=== PATIENT | female | born 1970 | race Caucasian/White ===

== ENCOUNTER 2017-10-31 08:36 | Emergency (ER) | payer OTHER ==
[2017-10-31] MEDS ORDERED: ONDANSETRON 4 MG/2 ML VIAL IVP STA ×2 (09:59→12:45)
[2017-10-31] MEDS ORDERED: KETOROLAC 60 MG/2 ML VIAL IVP STA (09:59)
[2017-10-31] MEDS ORDERED: SODIUM CHLORIDE 0.9% 1,000 ML IV ONE ×2 (09:59→12:14)
--- NOTE | 2017-10-31 10:02 | ED Physician Documentation ---
PD HPI ABD PAIN - Stated complaint Stated Complaint: ABD PX - Chief complaint Chief Complaint: Abd Pain - History obtained from History obtained from: Patient, Family (son) - History of Present Illness Timing - onset: How many weeks ago (2) Timing - duration: Weeks (2) Timing - details: Abrupt onset, Still present, Waxing and waning Quality: Sharp, Pain Location: RUQ Radiation: Right flank Improved by: Other (nothing) Worsened by: Other (nothing) Associated symptoms: Nausea, Vomiting Similar symptoms before: Diagnosis (chronic abdominal pain) Recently seen: Not recently seen - Additional information Additional information: 47-year-old female on pain management for chronic abdominal pain has developed acute right upper quadrant abdominal pain that radiates down into the right lower quadrant. She states that she has had some times where the pain is been resolved and she has severe pain and today the pain is bad enough that she has had some nausea and vomiting. She brings in a white gel like substance that she has vomited appears to be a pill ghost is stamped with a #10 and she states that she did take her oxycodone 10 this morning. Review of Systems Constitutional: denies: Fever Eyes: denies: Decreased vision Ears: denies: Ear pain Nose: denies: Congestion Throat: denies: Sore throat Cardiac: denies: Chest pain / pressure, Palpitations Respiratory: denies: Dyspnea, Cough GI: reports: Abdominal Pain, Nausea, Vomiting : denies: Dysuria, Frequency Skin: denies: Rash Musculoskeletal: reports: Back pain. 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 - Present Medications Home Medications: Ambulatory Orders Medication Instructions Recorded Confirmed oxyCODONE [Roxicodone] 0 mg PO PRN 07/30/13 12/31/13 Estrogens, Conjugated [Premarin] 0 mg PO 10/31/17 Famotidine [Pepcid] 10/31/17 Omeprazole [PriLOSEC] 10/31/17 oxyCODONE ER [OxyCONTIN] 10 mg BID 10/31/17 10/31/17 - Allergies Allergies/Adverse Reactions: Allergies Allergy/AdvReac Type Severity Reaction Status Date / Time acetaminophen [From Vicodin] Allergy Rash Verified 10/31/17 08:53 hydrocodone bitartrate * Allergy Rash Verified 10/31/17 08:53 [From Vicodin] - Social History Does the pt smoke?: No Smoking Status: Never smoker Does the pt drink ETOH?: No Does the pt have substance abuse?: No Substance Use and Type: Other PD ED PE NORMAL - Vitals Vital signs reviewed: Yes (hypertensive) - General General: Alert and oriented X 3, Well developed/nourished, Other (The patient is moaning in pain with 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 ) - Back Back: No CVA TTP, No spinal TTP - Derm Derm: Normal color, Warm and dry, No rash - Extremities Extremities: No deformity, No edema - Neuro Neuro: No motor deficit, No sensory deficit Eye Opening: Spontaneous Motor: Obeys Commands Verbal: Oriented GCS Score: 15 Results - Vitals Vitals: Vital Signs - 24 hr 10/31/17 10/31/17 10/31/17 08:40 11:00 12:05 Temperature 36.5 C Heart Rate 89 82 90 Respiratory 16 16 Rate Blood Pressure 142/90 H 140/86 H 143/93 H O2 Saturation 98 95 97 10/31/17 10/31/17 14:04 14:36 Temperature Heart Rate 94 98 Respiratory 12 16 Rate Blood Pressure 128/80 131/89 H O2 Saturation 98 97 Oxygen O2 Source Room air - Labs Labs: Laboratory Tests 10/31/17 10/31/17 10/31/17 09:58 10:14 13:40 WBC 18.3 H RBC 4.33 Hgb 12.8 Hct 38.0 MCV 87.7 MCH 29.5 MCHC 33.7 RDW 13.7 Plt Count 287 MPV 8.2 Neut # 17.0 H Lymph # 0.8 L [place] # 0.5 Eos # 0.0 Baso # 0.0 Absolute Nucleated RBC 0.01 Nucleated RBC % 0.0 Sodium 134 L Potassium 3.1 L Chloride 100 L Carbon Dioxide 25 Anion Gap 9.0 BUN 10 Creatinine 0.8 Estimated GFR (MDRD) 76 L Glucose 160 H Calcium 8.9 Total Bilirubin 0.6 AST 21 ALT 16 Alkaline Phosphatase 49 Total Protein 7.3 Albumin 4.1 Globulin 3.2 Albumin/Globulin Ratio 1.3 Lipase 10 L Urine Color YELLOW Urine Clarity CLEAR Urine pH 8.0 H Ur Specific [place] 1.015 Urine Protein NEGATIVE Urine Glucose (UA) NEGATIVE Urine Ketones 15 H Urine Occult Blood NEGATIVE Urine Nitrite NEGATIVE Urine Bilirubin NEGATIVE Urine Urobilinogen 0.2 (NORMAL) Ur Leukocyte Esterase NEGATIVE Ur Microscopic Review NOT INDICATED Urine Culture Comments NOT INDICATED - Rads (name of study) CT abdomen/pelvis Radiology: Prelim report reviewed (Impression: 1. No hydro-nephrosis or ureteral lithiasis. 2. No acute inflammatory or obstructive process identified. 3. Trace dependent pelvic free fluid, nonspecific. 4. Hepatomegaly, similar. 5.Sigmoid diverticulosis.), EMP read indepedently, See rad report Procedures - Bedside sono Bedside sono by EMP: With use of bedside ultrasound the right kidney is imaged there is evidence of hydronephrosis and the kidney is sonographically nontender. PD MEDICAL DECISION MAKING - ED course Complexity details: reviewed results, re-evaluated patient, considered differential, d/w patient, d/w family ED course: 47-year-old female with chronic abdominal pain on pain management has developed acute right flank pain has hydro-on bedside examination and this is suspicious for ureterolithiasis. There is no evidence of ureteral lithiasis nor hydronephrosis on CT examination of the abdomen and pelvis. The patient is given IV saline and pain medication. Toradal did not help. Dilaudid did help and she required 2 doses for excellent pain relief. Departure - Departure Disposition: 01 Home, Self Care Clinical Impression: Abdominal pain Qualifiers: Abdominal location: generalized Qualified Code(s): R10.84 - Generalized abdominal pain Instructions: ED Abdominal Pain Unkn Cause Follow-Up: Criselda Carrasquillo MD [Primary Care Provider] - Discharge Date/Time: 10/31/17 14:45
[2017-10-31 10:54] LABS: BASOPHILS % (AUTO) 0.2 %; HGB - HEMOGLOBIN 12.8 g/dL (12.0-16.0); LYMPHOCYTES # (AUTO) 0.8 10^3/uL (1.5-3.5); LYMPHOCYTES % (AUTO) 4.2 %; MEAN CORPUSCULAR HEMOGLOBIN 29.5 pg (27.0-31.0); MEAN CORPUSCULAR HGB CONC 33.7 g/dL (32.0-36.0); MEAN CORPUSCULAR VOLUME 87.7 fL (81.0-99.0); MEAN PLATELET VOLUME 8.2 fL (7.9-10.8); MONOCYTES # (AUTO) 0.5 10^3/uL (0.0-1.0); MONOCYTES % (AUTO) 2.8 %; NEUTROPHILS % (AUTO) 92.8 %; PLT - PLATELET COUNT 287 10^3/uL (130-450); RED BLOOD COUNT 4.33 10^6/uL (4.20-5.40); RED CELL DISTRIBUTION WIDTH 13.7 % (12.0-15.0); WHITE BLOOD COUNT 18.3 x10^3/uL (4.8-10.8)
[2017-10-31] MEDS ORDERED: HYDROmorphone 1 MG/ML CARPUJECT IVP STA ×2 (11:03→12:45)
[2017-10-31 11:07] LABS: ALBUMIN 4.1 g/dL (3.2-5.5); ALBUMIN/GLOBULIN RATIO 1.3 (1.0-2.2); BILIRUBIN,TOTAL 0.6 mg/dL (0.2-1.0); CALCIUM 8.9 mg/dL (8.5-10.3); CREATININE 0.8 mg/dL (0.4-1.0); TOTAL PROTEIN 7.3 g/dL (6.7-8.2)
--- NOTE | 2017-10-31 11:58 | CT Report ---
EXAM: CT ABDOMEN AND PELVIS EXAM DATE: 10/31/2017 11:31 AM. CLINICAL HISTORY: R flank pain with reported hydronephrosis on bedside eval. COMPARISONS: CT abdomen pelvis 03/25/2015. TECHNIQUE: Routine axial helical CT imaging was performed through the abdomen and pelvis without IV c ontrast. Reconstructions: Coronal and sagittal. In accordance with CT protocol optimization, one or more of the following dose reduction techniques w ere utilized for this exam: automated exposure control, adjustment of mA and/or KV based on patient s ize, or use of iterative reconstructive technique. FINDINGS: Lung Bases: Clear. Right Kidney/Ureter: No hydronephrosis, hydroureter, or stones. Normal renal size and contour. No foc al lesion identified. No perinephric fluid. Left Kidney/Ureter: No hydronephrosis, hydroureter, or stones. Normal renal size and contour. No foca l lesion identified. No perinephric fluid. Other Abdominal Organs: Elongated right hepatic lobe 23 cm in height, grossly comparable to prior. No focal lesion identified. No splenomegaly. Grossly unremarkable pancreas and adrenal glands. No ducta l dilatation status post remote cholecystectomy. Peritoneal Cavity: No bowel obstruction or focal inflammation identified. Sigmoid diverticulosis. Nor mal appendix. Minor nonspecific dependent right pelvic free fluid. No free air or mesenteric adenopat hy by CT size criteria. Retroperitoneum: No mass or lymphadenopathy. Pelvic Organs: No focal bladder abnormality identified. Hysterectomy. A small cystic focus 1.2 x 2.3 cm in the right adnexa. No adenopathy by size criteria. Vasculature: Normal caliber abdominal aorta. Other: Mild scoliosis and degenerative changes of the spine. IMPRESSION: 1. No hydronephrosis or urolithiasis. 2. No acute inflammatory or obstructive process identified. 3. Trace dependent pelvic free fluid, nonspecific. 4. Hepatomegaly, similar. 5. Sigmoid diverticulosis. [facility] Referring Provider Line: [phone] SITE ID: [id number]
--- NOTE | 2017-10-31 11:58 | CT Preliminary Report ---
Exam: CT ABDOMEN/PELVIS W/O IMPRESSION: 1. No hydronephrosis or urolithiasis. 2. No acute inflammatory or obstructive process identified. 3. Trace dependent pelvic free fluid, nonspecific. 4. Hepatomegaly, similar. 5. Sigmoid diverticulosis. [facility] SITE ID: [id number]
[2017-10-31] MEDS ORDERED: POTASSIUM CHLORIDE 20 MEQ TABLET PO STA (12:13)
[2017-10-31 13:53] LABS: BILIRUBIN,URINE NEGATIVE (NEGATIVE); CLARITY,URINE CLEAR (CLEAR); GLUCOSE, URINE (UA) NEGATIVE (NEGATIVE); KETONES,URINE (UA) 15 mg/dL (NEGATIVE); LEUKOCYTE ESTERASE, URINE NEGATIVE (NEGATIVE); NITRITE,URINE NEGATIVE (NEGATIVE); OCCULT BLOOD,URINE NEGATIVE (NEGATIVE); PROTEIN,URINE NEGATIVE (NEGATIVE); UROBILINOGEN,URINE 0.2 (NORMAL) E.U./dL (NORMAL)
[2017-10-31 14:36] VITALS: BP 131/89
== END 2017-10-31 14:45 | disposition home or self-care (01) ==
LOC: ED 08:36
DX: R10.11 Right upper quadrant pain (principal); R11.2 Nausea with vomiting, unspecified
CPT/HCPCS: 36415; 74176; 80053; 81003; 83690; 85025; 96361; 96374; 96375; 96376; 99283; 99284; A9270; J1170; 81001; 87086

== ENCOUNTER 2019-06-27 16:59 | Emergency (ER) | payer OTHER ==
--- NOTE | 2019-06-27 17:35 | ED Physician Documentation ---
PD HPI CHEST PAIN - Stated complaint Stated Complaint: LT CHEST,SHOULDER PX/SOA - Chief complaint Chief Complaint: Cardiac - History obtained from History obtained from: Patient - History of Present Illness Timing - onset: Today, Other (3 months) Timing - onset during: Rest Timing - details: Constant Pain level max: 9 Pain level now: 9 Quality: Aching, Pain Location: Left chest, Left shoulder/arm Improved by: Rest Worsened by: Movement, Palpation Associated symptoms: Shortness of air (wheezing). No: Diaphoresis, Nausea, Vomiting, Feeling faint / dizzy, General Weakness, Palpitations, Cough Recently seen: Not recently seen Review of Systems Ten Systems: 10 systems reviewed and negative Constitutional: denies: Fever, Chills Nose: denies: Rhinorrhea / runny nose, Congestion Throat: denies: Sore throat Cardiac: denies: Palpitations Respiratory: denies: Cough GI: denies: Nausea, Vomiting, Diarrhea Skin: denies: Rash Musculoskeletal: denies: Neck pain, Back pain Neurologic: denies: Headache PD PAST MEDICAL HISTORY - Past Medical History Past Medical History: No - Past Surgical History Past Surgical History: Yes 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 - Present Medications Home Medications: Ambulatory Orders Medication Instructions Recorded Confirmed oxyCODONE [Roxicodone] 0 mg PO PRN 07/30/13 12/31/13 Estrogens, Conjugated [Premarin] 0 mg PO 10/31/17 Famotidine [Pepcid] 10/31/17 Omeprazole [PriLOSEC] 10/31/17 oxyCODONE ER [OxyCONTIN] 10 mg BID 10/31/17 10/31/17 Cyclobenzaprine [Flexeril] 10 mg PO TID PRN #20 tablet 06/27/19 Meloxicam [Mobic] 15 mg PO DAILY PRN #20 tablet 06/27/19 - Allergies Allergies/Adverse Reactions: Allergies Allergy/AdvReac Type Severity Reaction Status Date / Time acetaminophen [From Vicodin] Allergy Rash Verified 10/31/17 08:53 hydrocodone bitartrate * Allergy Rash Verified 10/31/17 08:53 [From Vicodin] - Living Situation Living Situation: reports: With family Living Arrangement: reports: At home - Social History Does the pt smoke?: No Smoking Status: Never smoker Does the pt drink ETOH?: No Does the pt have substance abuse?: No PD ED PE NORMAL - Vitals Vital signs reviewed: Yes - General General: Alert and oriented X 3, No acute distress, Well developed/nourished - HEENT HEENT: Moist mucous membranes - Neck Neck: Supple, no meningeal sign - Cardiac Cardiac: RRR, Strong equal pulses - Respiratory Respiratory: No respiratory distress, Clear bilaterally - Abdomen Abdomen: Soft, Non tender, Non distended - Derm Derm: Warm and dry - Extremities Extremities: No edema, No calf tenderness / cord - Neuro Neuro: Alert and oriented X 3 - Psych Psych: Normal mood, Normal affect Results - Vitals Vitals: Vital Signs - 24 hr 06/27/19 06/27/19 06/27/19 17:06 17:30 18:00 Temperature 37.0 C Heart Rate 71 64 66 Respiratory 18 15 11 L Rate Blood Pressure 160/95 H 155/107 H 139/94 H O2 Saturation 97 97 96 06/27/19 06/27/19 06/27/19 18:51 19:00 19:33 Temperature Heart Rate 65 72 73 Respiratory 14 14 15 Rate Blood Pressure 149/93 H 137/97 H 146/93 H O2 Saturation 97 97 97 06/27/19 20:02 Temperature Heart Rate 71 Respiratory 17 Rate Blood Pressure 147/92 H O2 Saturation 97 Oxygen O2 Source Room air - EKG (time done) 1711 Rate: Rate (enter#) (59) Rhythm: NSR [place]: Normal Intervals: Other (short CT) QRS: Normal Ischemia: Normal ST segments - Labs Labs: Laboratory Tests 06/27/19 06/27/19 06/27/19 17:29 17:29 17:29 WBC 8.5 RBC 4.23 Hgb 12.0 Hct 38.1 MCV 90.1 MCH 28.4 MCHC 31.5 L RDW 14.3 Plt Count 429 MPV 8.9 Neut # (Auto) 4.6 Lymph # (Auto) 2.3 [place] # (Auto) 0.8 Eos # (Auto) 0.6 Baso # (Auto) 0.1 Absolute Nucleated RBC 0.00 Nucleated RBC % 0.0 Sodium 137 Potassium 4.0 Chloride 102 Carbon Dioxide 27 Anion Gap 8.0 BUN 16 Creatinine 0.8 Estimated GFR (MDRD) 76 L Glucose 97 Calcium 9.0 Total Bilirubin 0.6 AST 19 ALT 15 Alkaline Phosphatase 57 Troponin I High Sens 3.4 Total Protein 7.5 Albumin 3.8 Globulin 3.7 Albumin/Globulin Ratio 1.0 Lipase 31 - Rads (name of study) cxr Radiology: Prelim report reviewed, EMP read contemporaneously, See rad report (no acute disease) CT PA Radiology: Prelim report reviewed, EMP read contemporaneously, See rad report (no acute disease) PD MEDICAL DECISION MAKING - ED course Complexity details: reviewed results, re-evaluated patient, considered differential (No ST elevation AR, no aortic dissection, no PE, no tension pneumothorax, no aortic aneurysm), d/w patient, d/w family ED course: Patient with atypical chest pain. Appears to be musculoskeletal in nature. Worse with movement and better with rest. Also worse with palpation. She is on chronic narcotics at home. Will trial on muscle relaxants as well. No evidence of pulmonary embolus, aortic dissection. Patient counseled regarding signs and symptoms for which I believe and urgent re-evaluation would be necessary. Patient with good understanding of and agreement to plan and is comfortable going home at this time This document was made in part using voice recognition software. While efforts are made to proofread this document, sound alike and grammatical errors may occur. Departure - Departure Disposition: 01 Home, Self Care Clinical Impression: Chest wall pain Condition: Good Instructions: ED Chest Pain Atypical Unkn Cause Follow-Up: Fernando Dick MD [Primary Care Provider] - Within 1 week Prescriptions: Cyclobenzaprine [Flexeril] 10 mg PO TID PRN #20 tablet PRN Reason: Spasms Meloxicam [Mobic] 15 mg PO DAILY PRN #20 tablet PRN Reason: pain Comments: Use the medications as prescribed. Return if you worsen. Follow-up with your doctor for further care. Your testing is normal today. Discharge Date/Time: 06/27/19 20:07
[2019-06-27 17:38] LABS: BASOPHILS # (AUTO) 0.1 10^3/uL (0.0-0.1); BASOPHILS % (AUTO) 1.1 %; EOSINOPHILS # (AUTO) 0.6 10^3/uL (0.0-0.7); EOSINOPHILS % (AUTO) 7.2 %; LYMPHOCYTES # (AUTO) 2.3 10^3/uL (1.5-3.5); LYMPHOCYTES % (AUTO) 27.3 %; MEAN CORPUSCULAR HEMOGLOBIN 28.4 pg (27.0-31.0); MEAN CORPUSCULAR HGB CONC 31.5 g/dL (32.0-36.0); MEAN CORPUSCULAR VOLUME 90.1 fL (81.0-99.0); MEAN PLATELET VOLUME 8.9 fL (7.9-10.8); MONOCYTES # (AUTO) 0.8 10^3/uL (0.0-1.0); MONOCYTES % (AUTO) 9.5 %; NEUTROPHILS # (AUTO) 4.6 10^3/uL (1.5-6.6); NEUTROPHILS % (AUTO) 54.5 %; PLT - PLATELET COUNT 429 10^3/uL (130-450); RED BLOOD COUNT 4.23 10^6/uL (4.20-5.40); RED CELL DISTRIBUTION WIDTH 14.3 % (12.0-15.0); WHITE BLOOD COUNT 8.5 x10^3/uL (4.8-10.8)
[2019-06-27 17:49] LABS: ALBUMIN 3.8 g/dL (3.2-5.5); BILIRUBIN,TOTAL 0.6 mg/dL (0.2-1.0); CREATININE 0.8 mg/dL (0.4-1.0); TOTAL PROTEIN 7.5 g/dL (6.7-8.2)
--- NOTE | 2019-06-27 18:02 | XRAY Report ---
Reason: Chest Pain Procedure Date: 06/27/2019 Accession Number: [id number] / [id number] Procedure: XR - Chest 1 View X-Ray CPT Code: 30025 Final Report FULL RESULT: EXAM: CHEST RADIOGRAPHY EXAM DATE: 06/27/2019 05:39 PM. CLINICAL HISTORY: Chest pain. Left shoulder pain with wheezing x3 months. COMPARISON: 12/31/2013. TECHNIQUE: 1 view. FINDINGS: Lungs/Pleura: No focal opacities or vascular congestion. No pleural effusion or pneumothorax. Mediastinum: Cardiomediastinal silhouette appears unremarkable. Bones: No acute osseous findings identified. IMPRESSION: 1. Unremarkable AP chest. [facility]
[2019-06-27] MEDS ORDERED: DEXAMETHASONE 10 MG/ML VIAL IVP STA (18:06)
[2019-06-27] MEDS ORDERED: KETOROLAC 30 MG/ML VIAL IVP STA (18:06)
[2019-06-27] MEDS ORDERED: diazePAM INJ 5 MG/ML SYRINGE IVP STA (18:06)
[2019-06-27] MEDS ORDERED: IOVERSOL 320 100 ML VIAL IVP ONE ×2 (18:31→18:53)
--- NOTE | 2019-06-27 19:14 | CT Report ---
Reason: L sided chest pain, dyspnea Procedure Date: 06/27/2019 Accession Number: [id number] / [id number] Procedure: CT - ANGIO CHEST W/WO CPT Code: Final Report FULL RESULT: EXAM: CT ANGIOGRAM CHEST EXAM DATE: 06/27/2019 06:50 PM. CLINICAL HISTORY: Left-sided chest pain, dyspnea. COMPARISON: CHEST 1 VIEW 06/27/2019 5:23 PM. TECHNIQUE: Routine helical imaging was performed through the chest in the pulmonary arterial phase. IV Contrast: 80 mL of Optiray 320. Reconstructions: Coronal 3-D MIP reconstructions.Sagittal and coronal. In accordance with CT protocol optimization, one or more of the following dose reduction techniques were utilized for this exam: automated exposure control, adjustment of mA and/or KV based on patient size, or use of iterative reconstructive technique. FINDINGS: Pulmonary Arteries: Diagnostic quality: Adequate through the segmental arteries. No evidence for acute or chronic pulmonary emboli. RV/LV is within normal limits. There is no interventricular septal bowing. There is no reflux of contrast material in the IVC. Lungs/Pleura: Minimal dependent atelectasis in the bilateral lower lobes. No consolidation, nodules, or edema. No effusions or pneumothorax. Mediastinum: Heart size within normal limits. No pericardial effusions. No mediastinal or hilar lymphadenopathy. Thoracic Aorta: Study not optimized for evaluation of the thoracic aorta. No aneurysmal dilatation. Upper Abdomen: Surgically absent gallbladder. Osseous structures: No significant focal osseous lesions. IMPRESSION: 1. No acute findings including no evidence of pulmonary embolism. 2. Study not optimized for evaluation of the thoracic aorta. No aneurysm. 3. Minimal dependent atelectasis in the bilateral lower lobes. [facility]
[2019-06-27] MEDS ORDERED: CYCLOBENZAPRINE 10 MG TABLET PO STA (19:24)
[2019-06-27] MEDS ORDERED: HYDROmorphone 1 MG/ML CARPUJECT IVP STA (19:24)
[2019-06-27 20:03] VITALS: BP 147/92
== END 2019-06-27 20:07 | disposition home or self-care (01) ==
LOC: ED 16:59
DX: R07.89 Other chest pain (principal); M25.512 Pain in left shoulder
CPT/HCPCS: 36415; 71045; 71275; 80053; 83690; 84484; 85025; 93005; 96374; 96375; 99283; 99284; A9270; J1170; Q9967

== ENCOUNTER 2019-07-05 15:04 | Outpatient (CLI) | payer OTHER | END 2019-07-05 15:05 | disposition home or self-care (01) | LOC: DI 15:04 | DX: Z53.9 Procedure and treatment not carried out, unspecified reason (principal) ==

== ENCOUNTER 2019-10-15 14:03 | Emergency (ER) | payer OTHER ==
[2019-10-15 14:14] VITALS: BP 162/93
[2019-10-15] MEDS ORDERED: oxyCODONE 5 MG TABLET PO STA (14:14)
--- NOTE | 2019-10-15 14:15 | ED Physician Documentation ---
PD HPI CHEST PAIN - Stated complaint Stated Complaint: L ARM/CHEST PX - Chief complaint Chief Complaint: Cardiac - History obtained from History obtained from: Patient - History of Present Illness Timing - onset: Other (For the last 4 days she has had burning tight pain in the left arm mostly, a little bit of radiation in the chest. It is been fairly constant worse with motion but not exertion. She denies shortness of breath. She feels a little nauseous from the pain. No sweats. She says she is never had anything like this before, except when she had a inadvertent arterial stick in that arm remotely at another hospital. 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 - Present Medications Home Medications: Ambulatory Orders Medication Instructions Recorded Confirmed oxyCODONE [Roxicodone] 5 mg PO BID 07/30/13 10/15/19 Famotidine [Pepcid] 0 mg PO DAILY 10/31/17 10/15/19 Omeprazole [PriLOSEC] 0 mg PO DAILY 10/31/17 10/15/19 oxyCODONE ER [OxyCONTIN] 10 mg PO BID 10/31/17 10/15/19 Estrogens, Conjugated [Premarin] 1 tab PO DAILY 10/15/19 10/15/19 - Allergies Allergies/Adverse Reactions: Allergies Allergy/AdvReac Type Severity Reaction Status Date / Time acetaminophen [From Vicodin] Allergy Rash Verified 10/31/17 08:53 hydrocodone bitartrate * Allergy Rash Verified 10/31/17 08:53 [From Vicodin] - Social History Does the pt smoke?: No Smoking Status: Never smoker Does the pt drink ETOH?: No Does the pt have substance abuse?: No PD ED PE NORMAL - Vitals Vital signs reviewed: Yes - General General: Alert and oriented X 3, No acute distress - HEENT HEENT: PERRL, EOMI - Neck Neck: Supple, no meningeal sign, No bony TTP - Cardiac Cardiac: RRR, No murmur - Respiratory Respiratory: No respiratory distress, Clear bilaterally - Abdomen Abdomen: Non tender - Back Back: No CVA TTP, No spinal TTP - Derm Derm: Normal color, Warm and dry - Extremities Extremities: Other (She has tenderness of the forearm musculature on the left without deformity or limited range of motion. No bony tenderness. Radial p ulses are excellent.) - Neuro Neuro: Alert and oriented X 3, Normal speech Results - Vitals Vitals: Vital Signs - 24 hr 10/15/19 14:09 Temperature 37.1 C Heart Rate 95 Respiratory 18 Rate Blood Pressure 162/93 H O2 Saturation 96 Oxygen O2 Source Room air - EKG (time done) 1411 Rate: Rate (enter#) (90) Rhythm: NSR [place]: Normal Intervals: Normal [place] QRS: Normal Ischemia: Normal ST segments Computer interpretation: Agree with computer - Labs Labs: Laboratory Tests 10/15/19 10/15/19 10/15/19 14:18 14:23 14:23 WBC 8.5 RBC 4.52 Hgb 13.3 Hct 40.4 MCV 89.4 MCH 29.4 MCHC 32.9 RDW 14.7 Plt Count 390 MPV 9.6 Neut # (Auto) 5.4 Lymph # (Auto) 2.4 [place] # (Auto) 0.6 Eos # (Auto) 0.1 Baso # (Auto) 0.0 Absolute Nucleated RBC 0.00 Nucleated RBC % 0.0 Sodium 137 Potassium 3.7 Chloride 101 Carbon Dioxide 26 Anion Gap 10.0 BUN 13 Creatinine 0.8 Estimated GFR (MDRD) 76 L Glucose 126 H Calcium 9.2 Total Bilirubin 0.7 AST 27 ALT 23 Alkaline Phosphatase 54 Troponin I High Sens Total Protein 7.7 Albumin 4.0 Globulin 3.7 Albumin/Globulin Ratio 1.1 Lipase 22 Urine Opiates Screen NEGATIVE Ur Oxycodone Screen POSITIVE H Urine Methadone Screen NEGATIVE Ur Propoxyphene Screen NEGATIVE Ur Barbiturates Screen NEGATIVE Ur Tricyclics Screen NEGATIVE Ur Phencyclidine Scrn NEGATIVE Ur Amphetamine Screen NEGATIVE U Methamphetamines Scrn NEGATIVE U Benzodiazepines Scrn POSITIVE H Urine Cocaine Screen NEGATIVE U Cannabinoids Screen POSITIVE H Ethyl Alcohol < 5.0 10/15/19 14:23 WBC RBC Hgb Hct MCV MCH MCHC RDW Plt Count MPV Neut # (Auto) Lymph # (Auto) [place] # (Auto) Eos # (Auto) Baso # (Auto) Absolute Nucleated RBC Nucleated RBC % Sodium Potassium Chloride Carbon Dioxide Anion Gap BUN Creatinine Estimated GFR (MDRD) Glucose Calcium Total Bilirubin AST ALT Alkaline Phosphatase Troponin I High Sens 3.8 Total Protein Albumin Globulin Albumin/Globulin Ratio Lipase Urine Opiates Screen Ur Oxycodone Screen Urine Methadone Screen Ur Propoxyphene Screen Ur Barbiturates Screen Ur Tricyclics Screen Ur Phencyclidine Scrn Ur Amphetamine Screen U Methamphetamines Scrn U Benzodiazepines Scrn Urine Cocaine Screen U Cannabinoids Screen Ethyl Alcohol PD MEDICAL DECISION MAKING - ED course ED course: She presents with very atypical chest pain,/arm pain. Seems more like a muscular issue in the arm than anything else. Her EKG is not ischemic. We will check a troponin. She is on Provera but not estrogens, no other risk factors for PE. Her examination is normal and her cardiac biomarkers are negative. There is no bony tenderness or limited range of motion. No evidence of vascular issue. She requested more pain medication but it looks like she is under pain management with her physician, should have oxycodone etc. at home and I am not willing to give her anything stronger without objective evidence of a severe issue. ED i.e. reviewed, notes that it looks like she is due for her oxycodone which has not been filled yet. Departure - Departure Disposition: 01 Home, Self Care Clinical Impression: Left arm pain Condition: Good Record reviewed to determine appropriate education?: Yes Instructions: ED Chest Pain Atypical Unkn Cause Comments: Your work-up today demonstrates no serious cause of the pain, continue your usual pain medication prescribed by your physician for relief. Return for new or worsening symptoms. Follow-up with your physician, next available appointment.
[2019-10-15 14:26] LABS: MUDS CUTOFF CONCENTRATIONS CUTOFF CONC BELOW:
[2019-10-15 14:29] LABS: BASOPHILS % (AUTO) 0.5 %; EOSINOPHILS # (AUTO) 0.1 10^3/uL (0.0-0.7); EOSINOPHILS % (AUTO) 1.6 %; HGB - HEMOGLOBIN 13.3 g/dL (12.0-16.0); LYMPHOCYTES # (AUTO) 2.4 10^3/uL (1.5-3.5); LYMPHOCYTES % (AUTO) 27.7 %; MEAN CORPUSCULAR HEMOGLOBIN 29.4 pg (27.0-31.0); MEAN CORPUSCULAR HGB CONC 32.9 g/dL (32.0-36.0); MEAN CORPUSCULAR VOLUME 89.4 fL (81.0-99.0); MEAN PLATELET VOLUME 9.6 fL (7.9-10.8); MONOCYTES # (AUTO) 0.6 10^3/uL (0.0-1.0); NEUTROPHILS # (AUTO) 5.4 10^3/uL (1.5-6.6); NEUTROPHILS % (AUTO) 62.8 %; PLT - PLATELET COUNT 390 10^3/uL (130-450); RED BLOOD COUNT 4.52 10^6/uL (4.20-5.40); RED CELL DISTRIBUTION WIDTH 14.7 % (12.0-15.0); WHITE BLOOD COUNT 8.5 x10^3/uL (4.8-10.8)
[2019-10-15 14:39] LABS: AMPHETAMINE SCREEN,URINE NEGATIVE (NEGATIVE); BENZODIAZEPINES SCREEN, URINE POSITIVE (NEGATIVE); COCAINE SCREEN URINE NEGATIVE (NEGATIVE); METHADONE SCREEN, URINE NEGATIVE (NEGATIVE); METHAMPHETAMINES SCREEN, URINE NEGATIVE (NEGATIVE); OPIATE SCREEN, URINE NEGATIVE (NEGATIVE); OXYCODONE SCREEN, URINE POSITIVE (NEGATIVE); PROPOXYPHENE SCREEN, URINE NEGATIVE (NEGATIVE); TRICYCLIC ANTIDEPRESSANT,URINE NEGATIVE (NEGATIVE)
[2019-10-15 14:43] LABS: ALBUMIN/GLOBULIN RATIO 1.1 (1.0-2.2); ALKALINE PHOSPHATASE 54 IU/L (42-121); ALT ALANINE AMINOTRANSFERASE 23 IU/L (10-60); AST ASPARTATE AMINOTRANSFERASE 27 IU/L (10-42); BILIRUBIN,TOTAL 0.7 mg/dL (0.2-1.0); BUN - BLOOD UREA NITROGEN 13 mg/dL (6-20); CALCIUM 9.2 mg/dL (8.5-10.3); CARBON DIOXIDE - CO2 26 mmol/L (21-32); CHLORIDE 101 mmol/L (101-111); CREATININE 0.8 mg/dL (0.4-1.0); GLUCOSE 126 mg/dL (70-100); LIPASE 22 U/L (22-51); SODIUM 137 mmol/L (135-145); TOTAL PROTEIN 7.7 g/dL (6.7-8.2)
== END 2019-10-15 15:06 | disposition home or self-care (01) ==
LOC: ED 14:03
DX: M79.602 Pain in left arm (principal)
CPT/HCPCS: 36415; 80053; 80320; 83690; 84484; 85025; 93005; 99283; 99284; A9270; 80306

== ENCOUNTER 2020-05-30 14:46 | Outpatient (CLI) | payer OTHER | END 2020-05-30 14:47 | disposition home or self-care (01) | LOC: COV 14:46 | PROVIDERS: ATTEND Family Medicine | DX: R06.02 Shortness of breath (principal); M79.10 Myalgia, unspecified site; R53.83 Other fatigue; R09.81 Nasal congestion; R11.2 Nausea with vomiting, unspecified; Z20.828 Contact with and (suspected) exposure to other viral communicable diseases ==

== ENCOUNTER 2021-10-19 13:18 | Outpatient (CLI) | payer OTHER ==
--- NOTE | 2021-10-20 08:32 | Mammography Report ---
BILATERAL DIGITAL SCREENING MAMMOGRAM 3D/2D: 10/19/2021 CLINICAL: Routine screening. Comparison is made to exams dated: 05/17/2017 mammogram, 08/27/2013 mammogram, and 10/07/2011 mammogram - [facility]. There are scattered fibroglandular elements in both breasts. No significant masses, calcifications, or other findings are seen in either breast. There has been no significant interval change. IMPRESSION: NEGATIVE There is no mammographic evidence of malignancy. A 1 year screening mammogram is recommended. This exam was interpreted at Station ID: [id number]. NOTE: For mammograms, a report in lay terms will be sent to the patient. Approximately 15% of breast malignancies will not be visualized mammographically. In the management of a palpable breast mass, a negative mammogram must not discourage biopsy of a clinically suspicious lesion. Electronically Signed By: Brown Vora M.D., [email or web address]:10/19/2021 15:00:39 ACR BI-RADS Category 1: Negative 3341F PARENCHYMAL PATTERN: (A) - The breast(s) demonstrate(s) scattered fibroglandular densities. BI-RADS CATEGORY: (1) - 1 RECOMMENDATION: (ANNUAL) - Recommend routine annual screening mammography. [id number] 1 year screening LATERALITY: (B)
== END 2021-10-19 13:19 | disposition home or self-care (01) ==
LOC: DI.N 13:18
DX: Z12.31 Encounter for screening mammogram for malignant neoplasm of breast (principal)

== ENCOUNTER 2023-12-05 09:02 | Outpatient (CLI) | payer OTHER ==
--- NOTE | 2023-12-06 08:55 | Mammography Report ---
BILATERAL DIGITAL SCREENING MAMMOGRAM 3D/2D: 12/05/2023 CLINICAL: Routine screening. Comparison is made to exams dated: 10/19/2021 mammogram, 05/17/2017 mammogram, and 08/27/2013 mammogram - [facility]. There are scattered areas of fibroglandular density in both breasts (category b / 25%-50% glandular t issue). No significant masses, calcifications, or other findings are seen in either breast. There has been no significant interval change. IMPRESSION: NEGATIVE There is no mammographic evidence of malignancy. A 1 year screening mammogram is recommended. Based on the Tyrer Cuzick model (a risk assessment model) the patient's lifetime risk is 7.0% and her 10 year risk is 2.1%. According to the ACR, ACS, and NCCN guidelines, an annual breast MRI exam jeffrey g with mammogram is recommended if the patient's lifetime risk is 20% or greater. This exam was interpreted at Station ID: [id number]. NOTE: For mammograms, a report in lay terms will be sent to the patient. Approximately 15% of breast malignancies will not be visualized mammographically. In the management of a palpable breast mass, a negative mammogram must not discourage biopsy of a clinically suspicious lesion. Electronically Signed By: Jose D jones/candace:12/05/2023 10:10:10 letter sent: No_Letter ACR BI-RADS Category 1: Negative 3341F PARENCHYMAL PATTERN: (A) - The breast(s) demonstrate(s) scattered fibroglandular densities. BI-RADS CATEGORY: (1) - 1 RECOMMENDATION: (ANNUAL) - Recommend routine annual screening mammography. [id number] 1 year screening LATERALITY: (B)
== END 2023-12-05 09:03 | disposition home or self-care (01) ==
LOC: DI 09:02
PROVIDERS: ATTEND Student in an Organized Health Care Education/Training Program
DX: Z12.31 Encounter for screening mammogram for malignant neoplasm of breast (principal); R92.323 Mammographic fibroglandular density, bilateral breasts

== ENCOUNTER 2023-12-17 09:05 | Outpatient (CLI) | payer OTHER ==
--- NOTE | 2023-12-19 09:59 | Ultrasound Report ---
PROCEDURE: Abdomen Complete INDICATIONS: ABDOMINAL PAIN TECHNIQUE: Real-time scanning was performed of the abdominal and retroperitoneal organs, with image documentatio n. COMPARISON: CT abdomen pelvis 10/31/2017 FINDINGS: Liver: Liver is enlarged measuring 19.6 cm with steatosis. This is compared to 23 cm on prior exam. Gallbladder: No gallstones, sludge, wall thickening or pericholecystic edema. Biliary ducts: Intrahepatic bile ducts are non-dilated. Extrahepatic bile duct caliber measures 4 m m. Normal is 6-7 mm or less in diameter, or 10 mm or less post-cholecystectomy. Pancreas: Visualized portions of the pancreas are sonographically normal. Spleen: Spleen is normal in size and homogeneous in echotexture. Kidneys: Kidneys are normal in size and echotexture. Right kidney measures 10.0 cm long; left kidne y measures 10.9 cm long. No hydronephrosis or nephrolithiasis. No solid masses. No complex renal cy stic lesions which require follow-up. Aorta: Visualized aorta is normal in caliber at less than 3 cm. Iliacs: Proximal common iliac arteries are normal in caliber at less than 2.5 cm. IVC: Intrahepatic inferior vena cava is patent. Miscellaneous: No free abdominal fluid. IMPRESSION: Hepatomegaly with steatosis. Reviewed by: Lyric Gordon MD on 12/19/2023 9:58 AM PDT Approved by: Lyric Gordon MD on 12/19/2023 9:58 AM PDT Station ID: [id number]
== END 2023-12-17 09:06 | disposition home or self-care (01) ==
LOC: DI 09:05
PROVIDERS: ATTEND Internal Medicine
DX: K76.0 Fatty (change of) liver, not elsewhere classified (principal); R16.0 Hepatomegaly, not elsewhere classified; R10.9 Unspecified abdominal pain